=== PATIENT | male | born 1975 | race Caucasian/White ===

== ENCOUNTER → 2024-01-03 | Outpatient (CLI) | payer MEDICARE, OTHER, MEDICAID ==
[2024-01-03 13:06] LABS: BASO # 0.1 10^3/uL (0.0-0.2); BASO % 0.8 % (0.0-1.0); EOS # 0.2 10^3/uL (0.0-0.5); EOS % 2.5 % (0.0-3.0); HEMATOCRIT 44.8 % (42.0-52.0); HEMOGLOBIN 15.4 g/dl (13.5-17.5); LYMPH # 2.5 10^3/uL (1.5-5.0); LYMPH % 27.1 % (24.0-44.0); MEAN CORPUSCULAR HEMOGLOBIN 30.5 pg (27.0-33.0); MEAN CORPUSCULAR HGB CONC 34.4 g/dl (32.0-36.5); MEAN CORPUSCULAR VOLUME 88.7 fl (80.0-96.0); MONO # 0.9 10^3/uL (0.0-0.8); MONO % 9.8 % (2.0-8.0); NEUTROPHILS # 5.4 10^3/uL (1.5-8.5); NEUTROPHILS % 59.5 % (36.0-66.0); PLATELET COUNT, AUTOMATED 115 10^3/uL (150-450); RED BLOOD COUNT 5.05 10^6/uL (4.30-6.10); WHITE BLOOD COUNT 9.1 10^3/uL (4.0-10.0)
[2024-01-03 13:38] LABS: FOLATE 7.84 NG/ML (>5.4); THYROID STIMULATING HORMONE 3.484 uIU/ML (0.55-4.78)
[2024-01-03 13:39] LABS: VITAMIN B12 LEVEL 415 PG/ML (211-911)
[2024-01-03 13:40] LABS: FREE T4 0.74 NG/DL (0.89-1.76)
[2024-01-03 13:41] LABS: ALKALINE PHOSPHATASE 125 U/L (46-116); ALT/SGPT 38 U/L (7.0-40); AST/SGOT 17 U/L (<34); BILIRUBIN,TOTAL 0.3 MG/DL (0.3-1.2); BLOOD UREA NITROGEN 16 MG/DL (9-23); CALCIUM LEVEL 8.9 MG/DL (8.5-10.1); CARBON DIOXIDE LEVEL 31 MMOL/L (20-31); CHLORIDE LEVEL 107 MMOL/L (98-107); CREATININE FOR GFR 1.27 MG/DL (0.70-1.30); GLOMERULAR FILTRATION RATE > 60.0 (>60); GLUCOSE, FASTING 101 MG/DL (60-100); POTASSIUM SERUM 3.7 MMOL/L (3.5-5.1); SODIUM LEVEL 143 MMOL/L (136-145); TOTAL PROTEIN 7.1 G/DL (5.7-8.2)
== END ==
LOC: M WUC 10:14
PROVIDERS: ATTEND Family Medicine
DX: G62.9 Polyneuropathy, unspecified (principal); Z79.899 Other long term (current) drug therapy

== ENCOUNTER → 2024-02-11 | Outpatient (CLI) | payer OTHER, MEDICAID ==
[2024-02-11 12:59] LABS: HEMOGLOBIN A1c 5.8 % (4.0-6.0)
[2024-02-11 13:23] LABS: RHEUMATOID FACTOR QUANT 7.1 IU/ML (<14); THYROID STIMULATING HORMONE 2.916 uIU/ML (0.55-4.78)
[2024-02-11 13:24] LABS: FOLATE 3.6 NG/ML (>5.4)
[2024-02-12 14:10] LABS: ANTINUCLEAR ANTIBODIES DIRECT Negative (Negative)
[2024-02-15 16:09] LABS: VITAMIN E(ALPHA TOCOPHEROL) 12.6 mg/L (7.0-25.1); VITAMIN E(GAMMA TOCOPHEROL) 2.7 mg/L (0.5-5.5)
== END ==
LOC: M WUC 08:50
PROVIDERS: ATTEND Psychiatry & Neurology Neurology
DX: E53.8 Deficiency of other specified B group vitamins (principal); G62.9 Polyneuropathy, unspecified; E11.9 Type 2 diabetes mellitus without complications